=== PATIENT | female | born 1965 | race Caucasian/White ===

== ENCOUNTER 2017-12-09 08:55 | Day surgery (SDC) | payer OTHER ==
[~2017-12-09] VITALS: Ht 165.1 cm; Wt 60.3 kg
[~2017-12-09 08:55] MED LIST: AMITRIPTYLINE H25 MG PO; ANTIVERT25 MG PO; CARAFATE1 GM PO; EAR DROPS15 ML OTIC; EXCEDRIN EXTRA1 EAC1 PO; FIORICET 50-301 EACH PO; IBUPROFEN800 MG PO; IMITREX50 MG PO; NAPROSYN500 MG PO; NORCO 5-325 TA1 EACH PO; ONDANSETRON ODT8 MG PO; PENICILLIN V P500 MG PO; PERCOCET 5-3251 EACH PO; PROTONIX40 MG PO; PROZAC10 MG; TRAMADOL HCL50 MG PO; TRAZODONE HCL50 MG PO; TYLENOL WITH C1 EACH PO; VICODIN 5-3001 EACH PO
[2017-12-09] MEDS ORDERED: TYLENOL WITH C1 EACH PO (09:04)
--- NOTE | 2017-12-09 10:38 | NUR ---
12/09/17 1038 Marielle Sargent 1030 PT ARRIVED IN PACU SLEEPY WITH NO C/O'S. ABD SOFT AND PASSING FLATUS.
--- NOTE | 2017-12-09 12:07 | OR ---
[facility] [address] [place], [place] [address] Signed DATE OF OPERATION: 12/09/2017 SURGEON: Freddy Beckford MD PREOPERATIVE DIAGNOSIS: Screening. POSTOPERATIVE DIAGNOSES: 1. Moderate sigmoid diverticulosis. 2. Moderate internal hemorrhoids. PROCEDURE: Colonoscopy without biopsy. ESTIMATED BLOOD LOSS: None. INDICATIONS: Mariana is a 52-year-old female asked to see me for her initial screening colonoscopy. She has no lower GI complaints. There is no family history of colon cancer or polyps. In the office, I met with Mariana and I gave her a pamphlet on colonoscopy. She understands the nature of the test along with its risks including, but not limited to gas, bloating, crampy abdominal pain, bleeding, perforation, requiring surgery, and missed diagnosis. We also had reviewed the bowel prep in detail. In addition, she takes daily amitriptyline, Fioricet, Prozac, tramadol, and trazodone. Consequently, our simple Versed and fentanyl would not be enough to sedate her. We therefore asked our anesthesia provider to help us with increased monitoring of sedation with propofol. She had expressed understanding and wish to proceed. PROCEDURE NOTE: Mariana was taken into our endoscopy suite and placed in the left lateral decubitus position. She was given IV sedation with propofol per our nurse plate setter. A digital rectal exam was performed and this was unremarkable. The adult colonoscope was then introduced and advanced all around into the cecum under direct visualization of camera without difficulty. Her prep was good. The scope was then slowly withdrawn. She does have sigmoid diverticulosis. They are moderate in size, moderate in number, and scattered about. Also Mariana is small of build and her sigmoid colon is a little bit narrow, but it is fine otherwise. The rectum was unremarkable. The scope had been retroflexed in the rectum and she does have some moderate internal hemorrhoid columns. After this, the gas was suctioned out and the colonoscope removed. Mariana tolerated the Electronically Signed By: FREDDY BECKFORD MD 12/09/17 1207 PATIENT NAME: MARIANA SHARPE OPERATIVE REPORT DATE OF : 63 REPORT #: [id number] PHYSICIAN: FREDDY BECKFORD MD PCP: HERSON RILEY MD REPORT IS CONFIDENTIAL AND NOT TO BE RELEASED WITHOUT AUTHORIZATION [address] [address] Signed procedure quite well. RECOMMENDATIONS: Mariana can follow up in 10 years for repeat colonoscopy. Freddy Beckford MD ALB/MODL /[id number] cc: MD Freddy Treadwell MD Copies: HERSON RILEY MD, ANDREW L MD ~ Electronically Signed By: FREDDY BECKFORD MD 12/09/17 1207 PATIENT NAME: MARIANA SHARPE OPERATIVE REPORT DATE OF : 63 REPORT #: [id number] PHYSICIAN: FREDDY BECKFORD MD PCP: HERSON RILEY MD REPORT IS CONFIDENTIAL AND NOT TO BE RELEASED WITHOUT AUTHORIZATION
== END 2017-12-09 11:05 | disposition home or self-care (01) ==
LOC: DS 08:55 → OPS 08:55 → DS 09:45 → OPS 10:00
PROVIDERS: Colon & Rectal Surgery
PROC: 0DJD8ZZ Inspection of Lower Intestinal Tract, Via Natural or Artificial Opening Endoscopic (ICD-10-PCS; principal; 2017-12-09 10:00)
DX: Z12.11 Encounter for screening for malignant neoplasm of colon (principal); K57.30 Diverticulosis of large intestine without perforation or abscess without bleeding; K64.8 Other hemorrhoids; G47.00 Insomnia, unspecified; G43.909 Migraine, unspecified, not intractable, without status migrainosus; F32.9 Major depressive disorder, single episode, unspecified; F41.9 Anxiety disorder, unspecified; F17.210 Nicotine dependence, cigarettes, uncomplicated; Z79.899 Other long term (current) drug therapy
CPT/HCPCS: J2250; J2704; J3010; J7120

== ENCOUNTER 2020-08-21 09:30 | Emergency (ER) | payer OTHER ==
[~2020-08-21] VITALS: Ht 165.1 cm; Wt 63.5 kg
[2020-08-21] MEDS ORDERED: DULOXETINE HCL60 MG PO (10:53)
[2020-08-21] MEDS ORDERED: HUMIRA PEN40 MG/0.4 SUB-Q (10:53)
[2020-08-21] MEDS ORDERED: CYMBALTA20 MG PO (10:54)
[2020-08-21] MEDS ORDERED: OMEPRAZOLE20 MG PO (13:16)
--- NOTE | 2020-08-22 13:52 | EKG ---
[facility] [address] [facility] [place], [place] [address] Signed Normal sinus rhythm Normal ECG When compared with ECG of 09-JUN-2017 20:16, No significant change was found Confirmed by LIVE STEPHENSON DO ([id number]) on 08/22/2020 1:51:48 PM Electronically Signed By: LIVE STEPHENSON DO 08/22/20 1352 PATIENT NAME: ELYSE SHARPE Electrocardiogram DATE OF : 63 PHYSICIAN: LIVE STEPHENSON DO REPORT #: [id number] REPORT IS CONFIDENTIAL AND NOT TO BE RELEASED WITHOUT AUTHORIZATION
== END 2020-08-21 13:25 | disposition home or self-care (01) ==
LOC: ED 09:30
DX: R07.89 Other chest pain (principal); F17.200 Nicotine dependence, unspecified, uncomplicated; Z79.899 Other long term (current) drug therapy
CPT/HCPCS: 71046; 80053; 83690; 83735; 84484; 85025; 93005; 93010; 99285-25

== ENCOUNTER 2020-10-11 11:14 | Emergency (ER) | payer OTHER ==
[~2020-10-11] VITALS: Ht 165.1 cm; Wt 61.7 kg
[~2020-10-11 11:14] MED LIST changes: +CYMBALTA20 MG PO; +DULOXETINE HCL60 MG PO; +HUMIRA PEN40 MG/0.4 SUB-Q; +OMEPRAZOLE20 MG PO
== END 2020-10-11 13:01 | disposition home or self-care (01) ==
LOC: ED 11:14
DX: S61.411A Laceration without foreign body of right hand, initial encounter (principal); W25.XXXA Contact with sharp glass, initial encounter; F17.200 Nicotine dependence, unspecified, uncomplicated; Z79.899 Other long term (current) drug therapy
CPT/HCPCS: 12002; 80053; 81001; 84443; 85025; 99282-25; G0480

== ENCOUNTER 2023-01-26 09:20 | Day surgery (SDC) | payer OTHER ==
[2023-01-22 10:48] VITALS: BP 126/71
[~2023-01-26] VITALS: Ht 165.1 cm; Wt 60.0 kg
[~2023-01-26 09:20] MED LIST changes: +CEFUROXIME500 MG PO; +FOLIC ACID1 MG PO; +LEXAPRO20 MG PO; +METHOTREXATE2.5 MG; +MIRTAZAPINE7.5 MG PO; +NEURONTIN300 MG PO; +TRAMADOL HCL50 MG
[2023-01-26 09:42] VITALS: BP 111/72
[2023-01-26] MEDS ORDERED: HYDROCODON-ACE1 EA10 PO (09:47)
[2023-01-26] MEDS ORDERED: OXYCODONE HCL5 MG PO (12:33)
--- NOTE | 2023-01-26 12:42 | NUR ---
01/26/23 1242 Mary Contreras 1233 PT TO PACU MOANING AND SQIRMMING IN BED REPORTS SHE IS HAVING A LOT OF PAIN SHE IS NOT ABLE TO GIVE ME A NUMBER. KEITH PENALOZA AT BEDSIDE TO GIVE PT FEMORAL AND ILIAC BLOCK. PT TOLERATED WELL.
--- NOTE | 2023-01-26 13:40 | NUR ---
1340-PATIENT BACK TO ROOM FROM PACU ON 2L VIA NV. RECEIVED REPORT FROM LEATHA YAN. PATIENT IS AWAKE. RESP EVEN AND UNLABORED. RATES PAIN 5/10 AND THIS IS TOLERABLE FOR HER. DENIES NAUSEA. DRESSING IS CLEAN, DRY, AND INTACT. CRYO CUFF IN PLACE AND RUNNING. PARTNER IN ROOM. CALL LIGHT WITHIN REACH.
--- NOTE | 2023-01-26 14:50 | NUR ---
IN PT ROOM TO ANSWER CALL LIGHT. PT REPORTS NEED TO URINE VOID. 2PA W/FWW TO BEDSIDE COMMODE, 150 ML OF URINE VOID. PT BACK TO BED W/1PA AND FWW. DRESSING INTACT, MODERATE AMOUNT OF SOFT SWELLING ON LATERAL SIDE OF INCISION SITE. PT REPORTS PAIN AT 6/10 AND DESCRIBES A CONSTANT BURN, BUT STATES TOLERABLE AT THIS TIME. VS TAKEN. PT EATING AT THIS TIME AND REPORTS NO NAUSEA, DIZZINESS, N/T. CALL LIGHT WITHIN REACH, NO FURTHER NEEDS AT THIS TIME. SCHEDULED MEDS GIVEN (SEE EMAR).
[2023-01-26 14:51] VITALS: BP 119/74
--- NOTE | 2023-01-26 15:15 | NUR ---
PT WORKING WITH PHYSICAL THERAPY AT THIS TIME.
--- NOTE | 2023-01-26 15:45 | NUR ---
PT BACK FROM PHYSICAL THERAPY. PT REPORTS PAIN REMAINS TOLERABLE AT 6/10 PAIN. PT STATES NO NEED FOR PRN PAIN MED AT THIS TIME. PT REPORTS NO NAUSEA, DIZZINESS, N/T. NO CHANGE IN LATERAL RT HIP SWELLING POST AMBULATION, IT REMAINS SOFT SKIN TISSUE, NO SIGNS OF BLEEDING AT THIS TIME. PT REPORTS DESIRE TO GO HOME AT THIS TIME, PT NOW GETTING DRESSED W/SIGNIFICANT OTHER'S ASSISTANCE.
[2023-01-26 16:02] VITALS: BP 115/72
--- NOTE | 2023-01-26 16:10 | NUR ---
VS TAKEN. DISCHARGE EDUCATION PROVIDED AT THIS TIME, PT AND PT PARTNER STATE VERBAL UNDERSTANDING AND NO FURTHER QUESTIONS AT THIS TIME. PT OFF OF UNIT VIA WC AT 1620 BY THIS RN, ALL BELONGINGS IN PT POSSESSION. PT STANDBY ASSIST TO PASSENGER SIDE OF VEHICLE. PT REPORTS NO FURTHER QUESTIONS OR NEEDS AT THIS TIME.
--- NOTE | 2023-01-28 07:01 | OR ---
[facility] [address] [place], [place] [address] Signed DATE OF OPERATION: 01/26/2023 SURGEON: Dominique Contreras MD PREOPERATIVE DIAGNOSIS: Possible septic hip, right. POSTOPERATIVE DIAGNOSIS: Possible septic hip, right. PROCEDURE PERFORMED: Right hip arthrotomy with partial synovectomy and irrigation and debridement. SCHOOL BUS DISPATCHER: Wen Feliz PA-C. Wen was present and critical for al portions of procedure. ANESTHESIA: Spinal. BLOOD LOSS: 65 mL. SPECIMEN: Three separate cultures were sent and tissue was sent to pathology. BRIEF HISTORY: Mariana is a 57-year-old rheumatoid patient, who is on several immunosuppressant medications. She developed pain in her hip and workup was completed. She had significant fluid in her hip, which was aspirated and it showed Staph aureus. We attempted to send her to the [place], however, they were too busy to see her and directed us to take care of it rather than doing an arthroscopy there, which I was wishing for. We elected to go ahead and proceed with an arthrotomy and discussed the risks, benefits, and alternatives with her at length. She understood and wished to proceed. DESCRIPTION OF PROCEDURE: Once consent was obtained, she was taken to the operating room. She was placed on the traction table and both feet were placed in traction boots. The right hip was prepped and draped in a standard sterile fashion. Standard anterior approach through a Electronically Signed By: DOMINIQUE CONTRERAS MD 01/28/23 0701 PATIENT NAME: MARAINA SHARPE OPERATIVE REPORT DATE OF : 63 REPORT #: [id number] PHYSICIAN: DOMINIQUE CONTRERAS MD PCP: HERSON RILEY MD REPORT IS CONFIDENTIAL AND NOT TO BE RELEASED WITHOUT AUTHORIZATION [facility] [address] [place], [place] [address] Signed Carmona-Denney interval was undertaken. The skin was incised longitudinally, carried down to the fascia which was divided along the anterior margin of the gluteus. The interval between the gluteus and the TFL was then developed. Blunt dissection was taken down to the femoral neck and the interval was developed along the medial aspect of the femoral neck. The retractor was placed there and over the superior neck. Once this was accomplished, the rectus was elevated off the anterior femoral capsule. The capsule was then fully exposed. We attempted to aspirate fluid, however, we were unable to get any fluid from the hip joint at this time. The arthrotomy was then performed and flaps were developed medially and laterally, but left in place. There was mild to moderate synovitis throughout the anterior and inferior aspects of the hip. Multiple synovial biopsies were taken after synovial swabs were run through both sides of the hip. The tissue was collected after partial synovectomy and divided for tissue culture and for permanent sections. Once this was completed, the hip was placed under traction to distract it about 3 mm. Once this was accomplished, the hip was copiously irrigated with one bottle of iodine solution followed by irrigation with normal saline. The traction was then released and the arthrotomy was left alone and not closed. It should be noted that we did take care to protect the lateral circumflex vessels and did not cauterize those. The wound was again irrigated and the fascia was closed using #2 Stratafix, subcutaneous tissue with 0 Stratafix and the skin with 3-0 Stratafix. The wound was sealed with LiquiBand and Steri-Strips. The wound was dressed with an Acticoat-7 dressing. She tolerated the procedure well. All sponge, needle, and instrument counts were correct. Dominique Contreras MD BA/MODL /[id number] Copies: ~ Electronically Signed By: DOMINIQUE CONTRERAS MD 01/28/23 0701 PATIENT NAME: MARIANA SHARPE OPERATIVE REPORT DATE OF : 63 REPORT #: [id number] PHYSICIAN: DOMINIQUE CONTRERAS MD PCP: HERSON RILEY MD REPORT IS CONFIDENTIAL AND NOT TO BE RELEASED WITHOUT AUTHORIZATION
--- NOTE | 2023-01-30 14:03 | PATH ---
[facility] [address] [place], [place] [address] Signed SPECIMEN(S): A RT HIP DEEP TISSUE SPECIMEN SOURCE: A. RT HIP DEEP TISSUE CLINICAL HISTORY: Rt. Hip deep tissue. Septic arthropathy rt. Hip. FINAL PATHOLOGIC DIAGNOSIS: Right hip deep tissue: - Benign soft tissue and synovium with reactive features and chronic inflammation. - Negative for significantly increased neutrophils on these sections. JR:jassi MICROSCOPIC EXAMINATION: Histologic sections of all submitted blocks are examined by light microscopy. These findings, together with the gross examination, support the pathologic diagnosis. GROSS DESCRIPTION: The specimen, labeled and designated "Ernestine Sharpe, " and designated on the requisition "right hip deep tissue," is received in formalin and consists of 2.4 x 1.8 x 0.6 cm aggregate of pink-espinoza rubbery tissue fragments. The specimen is entirely submitted in (A1). FB (under the direct supervision of a pathologist) The Gross Description was prepared using a voice recognition system. The report was reviewed for accuracy; however, sound-alike word errors, addition and/or deletions may occur. If there is any question about this report, please contact Client Services. PERFORMING LABORATORY: Technical component was performed by [facility], [address] [place] [id number] (CLIA# [id number]). Professional interpretation was performed by [facility] - [facility], [address] [place] [id number] (CLIA#: [id number]). Diagnostician: Jasen Larose MD Pathologist Electronically Signed 01/30/2023 PATIENT NAME: ELYSE SHARPE PATHOLOGY DATE OF : 63 REPORT #: [id number] PHYSICIAN: MERLENE PATHOLOGY PCP: HERSON RILEY MD REPORT IS CONFIDENTIAL AND NOT TO BE RELEASED WITHOUT AUTHORIZATION [address] [place], [place] [address] Signed Copies: ~ PATIENT NAME: ELYSE SHARPE PATHOLOGY DATE OF : 63 REPORT #: [id number] PHYSICIAN: MERLENE PATHOLOGY PCP: HERSON RILEY MD REPORT IS CONFIDENTIAL AND NOT TO BE RELEASED WITHOUT AUTHORIZATION
== END 2023-01-26 16:20 | disposition home or self-care (01) ==
LOC: DS 09:20 → OPV-DS 09:32 → DS 09:37
PROVIDERS: ATTEND Specialist
PROC: 0SB90ZZ Excision of Right Hip Joint, Open Approach (ICD-10-PCS; principal; 2023-01-26 11:45)
DX: M00.851 Arthritis due to other bacteria, right hip (principal); Z87.891 Personal history of nicotine dependence; Z79.899 Other long term (current) drug therapy
CPT/HCPCS: 01210; 87070; 87075; 87205; 88305; 97161; A9270; J0131; J0690; J1100; J1160; J1720; J1885; J2250; J2405; J2704; J2765; J2795; J3010; J7040; J7121

== ENCOUNTER 2024-04-01 11:59 | Emergency (ER) | payer OTHER ==
[~2024-04-01] VITALS: Ht 165.1 cm; Wt 57.2 kg
[~2024-04-01 11:59] MED LIST changes: +HYDROCODON-ACE1 EA10 PO; +OXYCODONE HCL5 MG PO
[2024-04-01] MEDS ORDERED: FLUOXETINE HCL20 M1 PO (12:48)
[2024-04-01 13:10] LABS: BASOPHILS 0.9 % (0-2); EOSINOPHILS 1.6 % (0-6); HEMATOCRIT 37.2 % (35.0-50.0); HEMOGLOBIN 12.9 g/dL (12.0-18.0); MCH 31.9 (27-36); MCHC 34.7 g/dl (30-36); MONOCYTES 6.5 % (0-12); PLATELET COUNT 249 K/uL (140-440); RBC 4.04 M/ul (4.3-5.7); RDW 13.7 (10.5-15.0)
[2024-04-01 13:48] LABS: ALBUMIN 3.5 g/dL (3.4-5.0); ALBUMIN/GLOBULIN RATIO 1.21 (1.1-2.4); ALKALINE PHOSPHATASE 64 U/L (46-116); ALT (SGPT) 17 U/L (14-59); ANION GAP 11.4 (7-21); AST (SGOT) 13 U/L (15-37); BILIRUBIN, TOTAL 0.2 ng/dL (0.2-1.0); BUN/CREATININE RATIO 26.38 (6.0-28.6); CALCIUM 8.4 mg/dL (8.5-10.1); CARBON DIOXIDE 28 mmol/L (21-32); CHLORIDE 106 mmol/L (98-107); CREATININE, SERUM 0.72 mg/dL (0.55-1.02); GLOMERULAR FILTRATION RATE,EST 96 mL/min (>60); MAGNESIUM 2.1 mg/dL (1.8-2.4); POTASSIUM 3.4 mmol/L (3.5-5.1); PROTEIN, TOTAL 6.4 g/dL (6.4-8.2); UREA NITROGEN 19 mg/dL (7-18)
[2024-04-01 16:20] VITALS: BP 124/93
--- NOTE | 2024-04-02 19:29 | EKG ---
[facility] [facility] [address] [facility] [place], [place] [address] Signed Normal sinus rhythm Normal ECG When compared with ECG of 22-JAN-2023 10:57, No significant change was found Confirmed by Vin Cuevas MD ([id number]) on 04/02/2024 7:29:13 PM Electronically Signed By: VIN CUEVAS MD 04/02/241928 PATIENT NAME: ELYSE SHARPE Electrocardiogram DATE OF : 63 PHYSICIAN: VIN CUEVAS MD REPORT #: [id number] REPORT IS CONFIDENTIAL AND NOT TO BE RELEASED WITHOUT AUTHORIZATION
== END 2024-04-01 16:21 | disposition home or self-care (01) ==
LOC: ED 11:59
PROVIDERS: Emergency Medicine
DX: R06.02 Shortness of breath (principal); F17.200 Nicotine dependence, unspecified, uncomplicated; Z79.899 Other long term (current) drug therapy
CPT/HCPCS: 36415; 71045; 80053; 83735; 83880; 84484; 85025; 85379; 93005; 93010; 99285-25